=== PATIENT | female | born 1985 | race Caucasian/White ===

== ENCOUNTER 2017-08-02 21:49 | Emergency (ER) | payer OTHER | END 2017-08-02 22:33 | disposition left against medical advice (07) | LOC: ED 21:49 | DX: Z53.21 Procedure and treatment not carried out due to patient leaving prior to being seen by health care provider (principal) ==

== ENCOUNTER 2017-08-03 15:22 | Emergency (ER) | payer OTHER ==
[~2017-08-03] VITALS: Ht 167.6 cm; Wt 76.7 kg
[2017-08-03 15:49] VITALS: Ht 167.6 cm; Wt 76.7 kg
[2017-08-03 18:37] VITALS: BP 159/85
== END 2017-08-03 18:37 | disposition home or self-care (01) ==
LOC: ED 15:22
DX: I16.0 Hypertensive urgency (principal); G44.209 Tension-type headache, unspecified, not intractable
CPT/HCPCS: J0780; J1885

== ENCOUNTER 2020-07-27 16:22 | Emergency (ER) | payer OTHER ==
[~2020-07-27] VITALS: Ht 165.1 cm; Wt 73.5 kg
[2020-07-27] MEDS ORDERED: ATA25 PO (18:28)
[2020-07-27 18:40] VITALS: BP 206/122
== END 2020-07-27 19:14 | disposition home or self-care (01) ==
LOC: ED 16:22
DX: R51.9 Headache, unspecified (principal); I10 Essential (primary) hypertension; F41.9 Anxiety disorder, unspecified; Z87.442 Personal history of urinary calculi
CPT/HCPCS: J1885